=== PATIENT | male | born 1960 | race Caucasian/White ===

== ENCOUNTER 2018-07-18 07:36 | Day surgery (SDC) | payer OTHER ==
[2018-07-16 12:34] VITALS: BMI 23.6
[2018-07-18] MEDS ORDERED: PROPOFOL 20 ML ONE ×3 (09:51)
[2018-07-18 10:21] VITALS: TEMP 97.9
[2018-07-18 10:58] VITALS: BP 120/70; PULSE 63
--- NOTE | 2018-07-20 11:49 | PATH ---
Surgical Pathology Report Patient Name: CAL MORALES [facility]. Rec. #: [id number] /Age/Gender: 1960 (Age: 57) / M Account: [id number] Location: [facility] Taken: 07/18/2018 Received: 07/18/2018 Reported: 07/20/2018 Physicians: Wilber Martell M.D. Specimen(s) Received A: RIGHT PROXIMAL COLON B: SIGMOID COLON Clinical History Screening Final Diagnosis A. RIGHT PROXIMAL COLON POLYP, POLYPECTOMY: TUBULAR ADENOMA. B. SIGMOID COLON POLYP, POLYPECTOMY: TUBULAR ADENOMA. Electronically Signed Julisa Fischer M.D. Gross Description A. Received in formalin, labeled "polyp at proximal right colon" is a nguyen, irregular portion of soft tissue measuring 0.4 cm. in greatest dimension. The specimen is submitted in toto in one cassette. B. Received in formalin, labeled "polyp at sigmoid colon" is a nguyen, irregular portion of soft tissue measuring 0.3 cm. in greatest dimension. The specimen is submitted in toto in one cassette. /07/19/2018 saudi07/19/2018
== END 2018-07-18 10:58 | disposition home or self-care (01) ==
LOC: FASU-ENDO 07:36
PROVIDERS: ATTEND Internal Medicine Gastroenterology
PROC: 0DBN8ZX Excision of Sigmoid Colon, Via Natural or Artificial Opening Endoscopic, Diagnostic (ICD-10-PCS; 2018-07-18)
PROC: 0DBK8ZX Excision of Ascending Colon, Via Natural or Artificial Opening Endoscopic, Diagnostic (ICD-10-PCS; principal; 2018-07-18 09:35)
DX: Z12.11 Encounter for screening for malignant neoplasm of colon (principal); K57.30 Diverticulosis of large intestine without perforation or abscess without bleeding; D12.2 Benign neoplasm of ascending colon; D12.5 Benign neoplasm of sigmoid colon; I25.10 Atherosclerotic heart disease of native coronary artery without angina pectoris; K21.9 Gastro-esophageal reflux disease without esophagitis
CPT/HCPCS: 88305-TC